=== PATIENT | female | born 1990 | race Caucasian/White ===

== ENCOUNTER 2016-07-20 19:29 | Emergency (ER) | payer BC ==
[~2016-07-20] VITALS: Ht 160 cm; Wt 66.6 kg
[~2016-07-20 19:29] MED LIST: BCPILLS PO; SPIR50TA3 PO
[2016-07-20 19:33] VITALS: BP 117/70; TEMP 37; Ht 160 cm; Wt 66.6 kg
[2016-07-20] MEDS ORDERED: ONDANSETRON INJ 2 MG/ML 2 ML VIAL IV STA (19:47)
[2016-07-20] MEDS ORDERED: MoRPHine SULFATE 4 MG/ML 1 ML CARP\\VIAL IV STA (19:47)
[2016-07-20] MEDS ORDERED: SODIUM CHLORIDE 0.9% 1000ML 1,000 ML IV STA (19:47)
--- NOTE | 2016-07-20 19:53 | EMERGENCY ROOM VISIT NOTE ---
History First contact with patient: 19:38 Chief Complaint: URINARY SYMPTOMS Stated Complaint: KIDNEY STONES History of Present Illness The patient is a 26 year old female who presents to the Emergency Room with complaints of abdominal pain. The patient's symptoms started this morning. She reports diffuse abdominal discomfort and flank pain. She reports nausea, vomiting and diarrhea. The patient rates her discomfort a 7/10. Denies any fevers, earache, sore throat or cough. She denies any urinary symptoms. She denies any vaginal bleeding or discharge. The patient states she has a remote history of kidney stones. She denies any known sick contacts. She is a teacher. Review of Systems A 10 system review of systems was completed with positives and pertinent negatives listed in the HPI. Past Medical/Surgical History Patient denies Social History Smoking Status: Never Smoker Housing Status: lives with family Occupation Status: employed Current/Historical Medications Scheduled B-Complex Vitamins (Vitamin B Complex), 1 TAB PO DAILY Biotin (Biotin), 5,000 MCG PO DAILY Control Pills ( Control Pills), 1 TAB PO HS Ferrous Sulfate (Iron), 325 MG PO DAILY Ondasetron Odt (Zofran Odt), 4 MG SL Q6H Spironolactone (Aldactone), 50 MG PO DAILY Allergies Coded Allergies: Penicillins (Unverified Adverse Reaction, Unknown, 06/03/09) Physical Exam Vital Signs Date Time Temp Pulse Resp B/P Pulse Ox O2 Delivery O2 Flow Rate FiO2 07/20/16 21:30 84 16 97 Room Air 07/20/16 19:33 37.0 88 18 117/70 92 Room Air Physical Exam VITALS: Vitals are noted on the nurse's note and reviewed by myself. Vital signs stable. The patient is afebrile. GENERAL: This is a 26-year-old female, in no acute distress, nondiaphoretic, well-developed well-nourished. SKIN: The skin was without rashes, erythema, edema, or bruising. There is no tenting of the skin. Capillary reflex less than 2 seconds. HEAD: Normocephalic atraumatic. EARS: External auditory canals clear, tympanic membranes pearly leal without erythema or effusion bilaterally. EYES: Pupils equal round and reactive to light and accommodation. Conjunctivae without injection, sclerae without icterus. Extraocular movements intact. NOSE: Patent, turbinates without inflammation or discharge. MOUTH: Mucous membranes moist. Tonsils are not enlarged. Pharynx without erythema or exudate. Uvula midline. Airway patent. Tongue does not deviate. NECK: Supple without nuchal rigidity. No lymphadenopathy. No thyromegaly. Cervical spine is nontender. No JVD. HEART: Regular rate and rhythm without murmurs gallops or rubs. LUNGS: Clear to auscultation bilaterally without wheezes, rales or rhonchi. No retractions or accessory muscle use. ABDOMEN: Positive bowel sounds x 4. Soft, mild diffuse tenderness, without masses or organomegaly. Millan sign negative. MUSCULOSKELETAL: No muscle atrophy, erythema, or edema noted. Full range of motionin all extremities.Normal gait. Strength 5/5 throughout. NEURO: Patient was alert and oriented to person place and time. No focal neurological deficits. Medical Decision & Procedures ER Provider Diagnostic Interpretation: [~ rep ct add3]] ABDOMEN AND PELVIS CT WITHOUT CONTRAST CT DOSE: 751.54 mGy.cm HISTORY: Flank pain flank pain, vomiting TECHNIQUE: Multiaxial CT images of the abdomen and pelvis were performed without the use of intravenous and oral contrast according to the standard department stone protocol. COMPARISON STUDY: 01/19/2008 FINDINGS: The lung bases are clear. The unenhanced liver, gallbladder, spleen, pancreas, and adrenal glands are unremarkable. No renal stones or hydronephrosis. No bowel wall thickening or obstruction. The pelvic organs are unremarkable. No suspicious lytic or blastic osseous lesions. Minimal free fluid within the pelvic cul-de-sac. IMPRESSION: No renal stones or hydronephrosis. Minimal free fluid within the pelvic cul-de-sac possibly physiologic. Normal appendix. Laboratory Results 07/20/16 20:25 Red Blood Count 4.57, Mean Corpuscular Volume 89.3, Mean Corpuscular Hemoglobin 33.5, Mean Corpuscular Hemoglobin Concent 37.5, Mean Platelet Volume 9.5, Neutrophils (%) (Auto) 86.0, Lymphocytes (%) (Auto) 8.4, Monocytes (%) (Auto) 4.9, Eosinophils (%) (Auto) 0.3, Basophils (%) (Auto) 0.1, Neutrophils # (Auto) 6.46, Lymphocytes # (Auto) 0.63, Monocytes # (Auto) 0.37, Eosinophils # (Auto) 0.02, Basophils # (Auto) 0.01 07/20/16 20:25 Test 07/20/16 20:25 White Blood Count 7.51 K/uL (4.8-10.8) Red Blood Count 4.57 M/uL (4.2-5.4) Hemoglobin 15.3 g/dL (12.0-16.0) Hematocrit 40.8 % (37-47) Mean Corpuscular Volume 89.3 fL (80-100) Mean Corpuscular Hemoglobin 33.5 pg (25-34) Mean Corpuscular Hemoglobin Concent 37.5 g/dl (32-36) Platelet Count 183 K/uL (130-400) Mean Platelet Volume 9.5 fL (7.4-10.4) Neutrophils (%) (Auto) 86.0 % Lymphocytes (%) (Auto) 8.4 % Monocytes (%) (Auto) 4.9 % Eosinophils (%) (Auto) 0.3 % Basophils (%) (Auto) 0.1 % Neutrophils # (Auto) 6.46 K/uL (1.4-6.5) Lymphocytes # (Auto) 0.63 K/uL (1.2-3.4) Monocytes # (Auto) 0.37 K/uL (0.11-0.59) Eosinophils # (Auto) 0.02 K/uL (0-0.5) Basophils # (Auto) 0.01 K/uL (0-0.2) RDW Standard Deviation 36.6 fL (36.4-46.3) RDW Coefficient of Variation 11.3 % (11.5-14.5) Immature Granulocyte % (Auto) 0.3 % Immature Granulocyte # (Auto) 0.02 K/uL (0.00-0.02) Urine Color YELLOW Urine Appearance CLEAR (CLEAR) Urine pH 8.0 (4.5-7.5) Urine Specific [place] 1.015 (1.000-1.030) Urine Protein NEG (NEG) Urine Glucose (UA) NEG (NEG) Urine Ketones TRACE (NEG) Urine Occult Blood NEG (NEG) Urine Nitrite NEG (NEG) Urine Bilirubin NEG (NEG) Urine Urobilinogen NEG (NEG) Urine Leukocyte Esterase NEG (NEG) Urine Test NEG (NEG) Anion Gap 7.0 mmol/L (3-11) Est Creatinine Clear Calc Drug Dose 94.2 ml/min Estimated GFR () 112.8 Estimated GFR (Non- 97.3 BUN/Creatinine Ratio 16.6 (10-20) Calcium Level 9.2 mg/dl (8.5-10.1) Total Bilirubin 0.7 mg/dl (0.2-1) Aspartate Amino Transf (AST/SGOT) 14 U/L (15-37) Alanine Aminotransferase (ALT/SGPT) 26 U/L (12-78) Alkaline Phosphatase 53 U/L (45-117) Total Protein 7.6 gm/dl (6.4-8.2) Albumin 3.8 gm/dl (3.4-5.0) Globulin 3.8 gm/dl (2.5-4.0) Albumin/Globulin Ratio 1.0 (0.9-2) Lipase 103 U/L (73-393) Medications Administered Medications (Trade) Dose Ordered Sig/John Route Start Time Stop Time Status Last Admin Dose Admin Sodium Chloride (Nss 1000ml) 1,000 ml @ 999 mls/hr Q1H1M STAT IV 07/20/16 19:47 07/20/16 20:47 DC 07/20/16 20:24 999 MLS/HR Ondansetron HCl (Zofran Inj) 4 mg NOW STAT IV 07/20/16 19:47 07/20/16 19:50 DC 07/20/16 20:24 4 MG Morphine Sulfate (MoRPHine SULFATE INJ) 4 mg NOW STAT IV 07/20/16 19:47 07/20/16 19:50 DC 07/20/16 20:24 4 MG Ondansetron HCl (ZOFRAN ODT 4MG Home Pack) 1 homepack UD ONCE PO 07/20/16 21:45 07/20/16 21:46 DC 07/20/16 21:56 1 HOMEPACK ED Course the patient was seen and examined. Previous visits were reviewed. The patient does not have a fever or leukocytosis. She does not have any significant electrolyte abnormalities. Urine dip does not suggest infection. CT scan of the abdomen and pelvis does not reveal any acute abnormality The patient was hydrated with normal saline She was given 4 mg IV morphine and 4 mg IV Zofran with good improvement in her symptoms The patient did have physiologic free pelvic fluid on CT imaging. The patient denies any vaginal bleeding or vaginal discharge. She denies any concern for sexual transmitted infection. She refused a pelvic exam. The patient likely has a viral gastroenteritis. She should follow-up with her family doctor next week if symptoms are not improving. She should return with any worsening symptoms. She was given a take-home pack as well as a prescription for Zofran. The case was discussed with Dr. Bolanos who agrees with the assessment and treatment plan Medical Decision DIFFERENTIAL DIAGNOSIS: Hepatitis, cholecystitis, cholangitis, biliary colic, pancreatitis, pneumonia, subdiaphragmatic abscess, appendicitis, inguinal hernia , nephrolithiasis, inflammatory bowel disease, mesenteric adenitis, peptic ulcer disease, GERD, gastritis, pancreatitis, myocardial infarction, pericarditis, ruptured aortic aneurysm, appendicitis, gastroenteritis, bowel obstruction, splenic infarct, diverticulitis, mesenteric ischemia, metabolic, peritonitis, among others. Impression Primary Impression: Nausea vomiting and diarrhea Departure Information Dispostion Home / Self-Care Condition GOOD Prescriptions Ondasetron Odt (ZOFRAN ODT) 4 Mg Tab 4 MG SL Q6H for Nausea, #20 TAB Prov: Milagro Morton PA-C 07/20/16 Patient Instructions ED Nausea Vomiting, My [facility] Additional Instructions This is prescribed, as needed for nausea and vomiting Rest Clear fluids Advance diet as tolerated, bananas rice sauce and toast Return with any worsening pain, fevers Otherwise, follow up with your family doctor next week
[2016-07-20] MEDS ORDERED: FERR1TAB23 PO (20:10)
[2016-07-20] MEDS ORDERED: BIOT1CAP3 PO (20:10)
[2016-07-20] MEDS ORDERED: B-COTAB18 PO (20:10)
[2016-07-20 20:45] LABS: BASO % 0.1 %; BASO ABS # 0.01 K/uL (0-0.2); COMPLETE YES; EOS % 0.3 %; HEMATOCRIT 40.8 % (37-47); IG% 0.3 %; LYMPH % 8.4 %; LYMPH ABS # 0.63 K/uL (1.2-3.4); MEAN CELL VOLUME 89.3 fL (80-100); MEAN CORPUSCULAR HEMOGLOBIN 33.5 pg (25-34); MEAN CORPUSCULAR HGB CONC 37.5 g/dl (32-36); MEAN PLATELET VOLUME 9.5 fL (7.4-10.4); MONO % 4.9 %; PLATELET COUNT 183 K/uL (130-400); RED BLOOD COUNT 4.57 M/uL (4.2-5.4); WHITE BLOOD COUNT 7.51 K/uL (4.8-10.8)
--- NOTE | 2016-07-20 20:47 | DIAGNOSTIC IMAGING REPORT ---
ABDOMEN AND PELVIS CT WITHOUT CONTRAST CT DOSE: 751.54 mGy.cm HISTORY: Flank pain flank pain, vomiting TECHNIQUE: Multiaxial CT images of the abdomen and pelvis were performed without the use of intravenous and oral contrast according to the standard department stone protocol. COMPARISON STUDY: 01/19/2008 FINDINGS: The lung bases are clear. The unenhanced liver, gallbladder, spleen, pancreas, and adrenal glands are unremarkable. No renal stones or hydronephrosis. No bowel wall thickening or obstruction. The pelvic organs are unremarkable. No suspicious lytic or blastic osseous lesions. Minimal free fluid within the pelvic cul-de-sac. IMPRESSION: No renal stones or hydronephrosis. Minimal free fluid within the pelvic cul-de-sac possibly physiologic. Normal appendix. Electronically signed by: Julius Fulton M.D. 07/20/2016 8:45 PM Dictated Date/Time: 07/20/2016 8:42 PM
[2016-07-20 21:06] LABS: BUN/CREATININE RATIO 16.6 (10-20); CALCIUM 9.2 mg/dl (8.5-10.1); CREATININE 0.83 mg/dl (0.60-1.20); POTASSIUM 3.6 mmol/L (3.5-5.1)
[2016-07-20 21:30] VITALS: PULSE 84; O2SAT 97
[2016-07-20 21:43] LABS: URINE APPEARANCE CLEAR (CLEAR); URINE BILIRUBIN NEG (NEG); URINE COLOR YELLOW; URINE NITRITE NEG (NEG); URINE SPECIFIC GRAVITY 1.015 (1.000-1.030); UROBILINOGEN NEG (NEG); ZZUR CULT IF INDIC CLEAN CATCH NO
[2016-07-20 21:45] LABS: MANUAL MICROSCOPIC REQUIRED? NO; REVIEW REQ? NO
[2016-07-20] MEDS ORDERED: ONDANSETRON HOME PACK 4MG OD TAB PO ONE (21:45)
[2016-07-20] MEDS ORDERED: ONDA4TAB10 SL (21:46)
== END 2016-07-20 22:00 | disposition home or self-care (01) ==
LOC: C.EDB 19:30
DX: R11.2 Nausea with vomiting, unspecified (principal); R19.7 Diarrhea, unspecified; Z87.442 Personal history of urinary calculi